=== PATIENT | male | born 1975 | race Caucasian/White ===

== ENCOUNTER 2019-10-08 10:53 | Emergency (ER) | payer SELFPAY ==
[~2019-10-08] VITALS: Ht 175.2 cm; Wt 68.0 kg
[2019-10-08 11:54] LABS: HEMATOCRIT 38.2 % (42.0-52.0); HEMOGLOBIN 12.7 g/dl (14.0-18.0); MEAN CORPUSCULAR HGB 29.6 pg (27.0-31.0); MEAN CORPUSCULAR HGB CONC 33.2 g/dl (33.0-37.0); MEAN PLATELET VOLUME 10.6 fl (9.6-12.3); PLATELET COUNT AUTOMATED 163 10*3/uL (130-400); RED BLOOD COUNT 4.29 10*6/uL (4.50-5.90); RED CELL DISTRI WIDTH 14.1 % (0-14.5); WHITE BLOOD COUNT 5.2 10*3/uL (4.8-10.8)
[2019-10-08 12:00] LABS: ALKALINE PHOSPHATASE 93 U/L (45-117); BUN 10 mg/dl (7-24); CHLORIDE 102 mmol/L (98-107); CREATININE 1.03 mg/dL (0.70-1.30); POTASSIUM 3.3 mmol/L (3.5-5.1); SGOT/AST 56 IU/L (3-35); SGPT/ALT 41 U/L (12-78); SODIUM 135 mmol/L (136-145)
[2019-10-08 12:06] LABS: PLATELET SUFFICIENCY NORMAL (NORMAL); TOTAL CELLS COUNTED 100 #CELLS
[2019-10-08] MEDS ORDERED: LEVAQUIN500 M2 PO (15:42)
[2019-10-08] MEDS ORDERED: PREDNISONE20 M1 PO (15:45)
== END 2019-10-08 16:31 | disposition home or self-care (01) ==
LOC: ED 10:53
PROVIDERS: Emergency Medicine
DX: J18.9 Pneumonia, unspecified organism (principal)